=== PATIENT | female | born 1990 | race Caucasian/White ===

== ENCOUNTER 2018-04-06 16:59 | Outpatient (CLI) | payer SELFPAY, MEDICAID | END 2018-04-06 18:55 | disposition home or self-care (01) | LOC: OBT 16:59 → L-D 17:00 → OBT 18:55 | DX: O26.893 Other specified pregnancy related conditions, third trimester (principal); M79.669 Pain in unspecified lower leg; Z3A.36 36 weeks gestation of pregnancy | CPT/HCPCS: 93970 ==

== ENCOUNTER 2018-04-06 19:18 | Inpatient (IN) | payer MEDICAID ==
[2018-04-20] MEDS ORDERED: BUTORPHANOL 1 MG INJ IV (21:00)
[2018-04-20] MEDS ORDERED: MISOPROSTOL 200 MCG TAB PR (21:00)
[2018-04-20] MEDS ORDERED: LIDOCAINE 1% (MPF) 30 ML INJ INJ (21:00)
[2018-04-20] MEDS ORDERED: METHYLERGONOVINE 0.2 MG INJ IM (21:00)
[2018-04-20] MEDS ORDERED: IBUPROFEN 600 MG TAB PO (21:00)
[2018-04-20] MEDS ORDERED: OXYTOCIN 30 UNITS/LR 500 ML IV (21:00)
[2018-04-20] MEDS ORDERED: CARBOPROST 250 MCG INJ IM (21:00)
[2018-04-20] MEDS: LACTATED RINGER'S 1,000 ML IV* (21:28)
[2018-04-20] MEDS: BUTORPHANOL 2 MG INJ IV (21:44)
[2018-04-20 21:47] LABS: ADD MAN DIFF? NO
[2018-04-20 21:50] LABS: BASOPHILS % 0.3 % (0.0-2.0); EOSINOPHILS # 0.1 10^3/ul (0.0-0.5); EOSINOPHILS % 1.2 % (0.0-7.0); HEMATOCRIT 34.1 % (37.0-47.0); HEMOGLOBIN 11.3 g/dl (12.0-16.0); LYMPHOCYTES # 2.9 10^3/ul (0.8-2.9); LYMPHOCYTES % 23.9 % (15.0-51.0); MEAN CORPUSCULAR HEMOGLOBIN 27.9 pg (29.0-33.0); MEAN CORPUSCULAR HGB CONC 33.1 g/dl (32.0-37.0); MEAN CORPUSCULAR VOLUME 84.2 fl (82.0-101.0); MEAN PLATELET VOLUME 9.5 fl (7.4-10.4); MONOCYTE # 0.6 10^3/ul (0.3-0.9); MONOCYTES % 4.8 % (0.0-11.0); NEUTROPHIL # 8.4 10^3/ul (1.6-7.5); NEUTROPHILS % 69.3 % (39.0-77.0); PLATELET COUNT 321 10^3/UL (140-415); RED BLOOD COUNT 4.05 10^6/ul (4.20-5.40); RED CELL DISTRIBUTION WIDTH 13.6 % (11.5-14.5)
[2018-04-20 21:50] LABS: WHITE BLOOD COUNT 12.2 10^3/ul (4.8-10.8)
[2018-04-20] MEDS ORDERED: LIDOCAINE 0.5% (SDV) 50 ML INJ (21:51)
[2018-04-20 22:10] LABS: INR 0.93; PARTIAL THROMBOPLASTIN TIME 26.8 Sec (23.0-35.0); PROTIME 12.6 Sec (11.9-14.9)
[2018-04-21] MEDS: LACTATED RINGER'S 1,000 ML IV* ×3 (00:08→12:58)
[2018-04-21] MEDS: LIDOCAINE 0.5% (SDV) 50 ML INJ INFIL (00:30)
[2018-04-21] MEDS ORDERED: FENTAnyl 2MCG/ML-ROPIV 0.2% 100 ML (00:37)
[2018-04-21] MEDS ORDERED: NALOXONE (0.4 MG/ML) INJ IV (01:00)
[2018-04-21] MEDS ORDERED: FENTAnyl 2MCG/ML-ROPIV 0.2% 100 ML BAG EPI (01:00)
[2018-04-21 01:22] LABS: HEPATITIS B SURFACE ANTIGEN NEGATIVE (NEGATIVE)
[2018-04-21] MEDS: OXYTOCIN 30 UNITS/LR 500 ML IV ×2 (03:56→04:02)
[2018-04-21] MEDS ORDERED: METHYLERGONOVINE 0.2 MG INJ IM (05:00)
[2018-04-21] MEDS ORDERED: CARBOPROST 250 MCG INJ IM (05:00)
[2018-04-21] MEDS ORDERED: MISOPROSTOL 200 MCG TAB PR (05:00)
[2018-04-21] MEDS ORDERED: OXYTOCIN 30 UNITS/LR 500 ML IV (05:00)
[2018-04-21] MEDS ORDERED: ACETAMINOPHEN 325 MG TAB PO (05:00)
[2018-04-21] MEDS ORDERED: DIBUCAINE 1% 30 GM OINT PR (05:00)
[2018-04-21] MEDS: IBUPROFEN 600 MG TAB PO ×4 (05:42→23:37)
[2018-04-21] MEDS: BENZOCAINE 20% 56 ML SPRAY TOP (05:42)
[2018-04-21] MEDS: WITCH HAZEL/GLYCERIN PAD PR (05:42)
[2018-04-21] MEDS: LANOLIN 7 GM TUBE TOP (05:42)
[2018-04-21] MEDS: SENNA/DOCUSATE NA (8.6MG/50MG) TAB PO ×2 (09:26→21:04)
[2018-04-21] MEDS: HYDROCODONE/APAP (5/325) TAB PO ×3 (09:30→21:52)
[2018-04-21 15:19] LABS: RAPID PLASMA REAGIN NONREACTIVE (NR)
[2018-04-22] MEDS: HYDROCODONE/APAP (5/325) TAB PO ×4 (03:51→21:47)
[2018-04-22] MEDS: IBUPROFEN 600 MG TAB PO ×3 (05:30→17:24)
[2018-04-22 07:32] LABS: ADD MAN DIFF? NO
[2018-04-22 07:34] LABS: BASOPHILS % 0.3 % (0.0-2.0); EOSINOPHILS # 0.3 10^3/ul (0.0-0.5); EOSINOPHILS % 2.3 % (0.0-7.0); HEMATOCRIT 31.6 % (37.0-47.0); HEMOGLOBIN 10.3 g/dl (12.0-16.0); LYMPHOCYTES # 3.6 10^3/ul (0.8-2.9); LYMPHOCYTES % 30.9 % (15.0-51.0); MEAN CORPUSCULAR HEMOGLOBIN 27.7 pg (29.0-33.0); MEAN CORPUSCULAR HGB CONC 32.6 g/dl (32.0-37.0); MEAN CORPUSCULAR VOLUME 84.9 fl (82.0-101.0); MEAN PLATELET VOLUME 9.4 fl (7.4-10.4); MONOCYTE # 0.7 10^3/ul (0.3-0.9); MONOCYTES % 6.1 % (0.0-11.0); NEUTROPHIL # 6.9 10^3/ul (1.6-7.5); PLATELET COUNT 261 10^3/UL (140-415); RED BLOOD COUNT 3.72 10^6/ul (4.20-5.40); RED CELL DISTRIBUTION WIDTH 13.9 % (11.5-14.5)
[2018-04-22 07:34] LABS: WHITE BLOOD COUNT 11.5 10^3/ul (4.8-10.8)
[2018-04-22 08:01] LABS: ALANINE AMINOTRANSFERASE 18 IU/L (13-69); ALBUMIN 2.9 g/dl (3.3-4.9); ALKALINE PHOSPHATASE 100 IU/L (42-121); ANION GAP 9 (5-13); ASPARTATE AMINO TRANSFERASE 22 IU/L (15-46); BILIRUBIN,INDIRECT 0.1 mg/dl (0-1.1); BILIRUBIN,TOTAL 0.1 mg/dl (0.2-1.3); BLOOD UREA NITROGEN 7 mg/dl (7-20); CARBON DIOXIDE 26 mmol/L (21-31); CHLORIDE 101 mmol/L (97-110); Estimated GFR > 60 mL/min (>60); GLUCOSE 83 mg/dl (70-220); MAGNESIUM 1.8 mg/dl (1.7-2.5); POTASSIUM 3.8 mmol/L (3.5-5.1); SODIUM 136 mmol/L (135-144); TOTAL PROTEIN 6.1 g/dl (6.1-8.1)
[2018-04-22] MEDS: SENNA/DOCUSATE NA (8.6MG/50MG) TAB PO ×2 (09:31→21:47)
[2018-04-22] MEDS: IBUPROFEN 400 MG TAB PO (23:51)
[2018-04-23] MEDS: IBUPROFEN 600 MG TAB PO ×4 (05:40→18:21)
[2018-04-23] MEDS: DIPHTH/TET/ACEL PERTUSS (ADULT) 0.5 ML VIAL IM* (09:00)
[2018-04-23] MEDS: SENNA/DOCUSATE NA (8.6MG/50MG) TAB PO (09:02)
[2018-04-23] MEDS: IBUPROFEN 400 MG TAB PO (09:03)
[2018-04-23] MEDS: HYDROCODONE/APAP (5/325) TAB PO ×2 (10:43→19:57)
== END 2018-04-23 20:29 | disposition home or self-care (01) | DRG 807 ==
LOC: OBT 19:18 → PP1 04-21 05:25 → OBT 04-20 18:51 → L-D 04-20 18:52 → OBT 04-20 20:00 → L-D 04-20 20:00
PROVIDERS: Obstetrics & Gynecology
PROC: 4A1HXCZ Monitoring of Products of Conception, Cardiac Rate, External Approach (ICD-10-PCS; 2018-04-20)
PROC: 10E0XZZ Delivery of Products of Conception, External Approach (ICD-10-PCS; principal; 2018-04-21)
DX: O99.214 Obesity complicating childbirth (principal); Z37.0 Single live birth; O90.81 Anemia of the puerperium; O90.89 Other complications of the puerperium, not elsewhere classified; M54.2 Cervicalgia; R51 Headache; E66.9 Obesity, unspecified; M25.512 Pain in left shoulder; M25.511 Pain in right shoulder; M54.5 Low back pain; Z68.39 Body mass index [BMI] 39.0-39.9, adult; Z3A.38 38 weeks gestation of pregnancy
CPT/HCPCS: 62319; 70450; 80053; 83735; 85025; 85610; 85730; 86592; 86850; 86900; 86901; 87340; 90715; 93880; 99464